=== PATIENT | male | born 1955 | race Caucasian/White ===

== ENCOUNTER → 2022-05-24 | Outpatient (RCR) | payer BC, OTHER | END | disposition home or self-care (01) | LOC: ONC 10:17 | PROVIDERS: ATTEND Radiology Radiation Oncology | DX: C61 Malignant neoplasm of prostate (principal); Z87.891 Personal history of nicotine dependence; Z85.118 Personal history of other malignant neoplasm of bronchus and lung | CPT/HCPCS: 99205 ==